=== PATIENT | female | born 1970 | race Caucasian/White ===

== ENCOUNTER 2020-01-19 06:14 | Day surgery (SDC) | payer OTHER, SELFPAY ==
[~2020-01-19] VITALS: Ht 154.9 cm; Wt 81.6 kg
[2020-01-19] MEDS ORDERED: fentaNYL citrate 0.05 MG/ML VIAL ONE (07:26)
[2020-01-19] MEDS ORDERED: diphenhydrAMINE 50 MG/ML VIAL ONE (07:26)
[2020-01-19] MEDS ORDERED: LIDOCAINE 2% 100 MG/5 ML UJET TP ONE (07:27)
[2020-01-19] MEDS ORDERED: MIDAZOLAM 5 MG/5 ML VIAL ONE (07:27)
[2020-01-19] MEDS ORDERED: fentaNYL citrate 0.05 MG/ML VIAL IVP ONE (13:50)
[2020-01-19] MEDS ORDERED: MIDAZOLAM 2 MG/2 ML VIAL IVP ONE (13:50)
== END 2020-01-19 08:25 | disposition home or self-care (01) ==
LOC: MDS 06:14 → MMU 06:15 → MDS 08:25
PROVIDERS: ATTEND Internal Medicine Gastroenterology
DX: Z12.11 Encounter for screening for malignant neoplasm of colon (principal); K63.5 Polyp of colon; E11.9 Type 2 diabetes mellitus without complications; Z80.0 Family history of malignant neoplasm of digestive organs; Z98.51 Tubal ligation status; Z79.899 Other long term (current) drug therapy; Z20.828 Contact with and (suspected) exposure to other viral communicable diseases
CPT/HCPCS: 45380; 81025; J2250; J3010; U0003; 88305; J1200